=== PATIENT | female | born 1950 | race Caucasian/White ===

== ENCOUNTER 2017-10-11 11:29 | Inpatient (IN) | payer MEDICARE, OTHER ==
[2017-10-11] MEDS: ALBUTEROL 0.083% (NEB) 2.5 MG/3 ML AMP INH (12:16)
[2017-10-11 12:36] LABS: ADD MAN DIFF? NO
[2017-10-11 12:38] LABS: BASOPHIL # 0.1 10^3/ul (0.0-0.1); BASOPHILS % 1.4 % (0.0-2.0); HEMATOCRIT 37.1 % (37.0-47.0); HEMOGLOBIN 11.1 g/dl (12.0-16.0); LYMPHOCYTES # 1.8 10^3/ul (0.8-2.9); LYMPHOCYTES % 31.3 % (15.0-51.0); MEAN CORPUSCULAR HEMOGLOBIN 27.1 pg (29.0-33.0); MEAN CORPUSCULAR HGB CONC 29.9 g/dl (32.0-37.0); MEAN CORPUSCULAR VOLUME 90.5 fl (82.0-101.0); MEAN PLATELET VOLUME 12.2 fl (7.4-10.4); MONOCYTE # 0.4 10^3/ul (0.3-0.9); MONOCYTES % 6.7 % (0.0-11.0); NEUTROPHIL # 3.5 10^3/ul (1.6-7.5); NEUTROPHILS % 60.1 % (39.0-77.0); PLATELET COUNT 199 10^3/UL (140-415); RED CELL DISTRIBUTION WIDTH 16.5 % (11.5-14.5)
[2017-10-11 12:38] LABS: WHITE BLOOD COUNT 5.9 10^3/ul (4.8-10.8)
[2017-10-11 12:44] LABS: ALANINE AMINOTRANSFERASE 19 IU/L (13-69); ALBUMIN 4.2 g/dl (3.3-4.9); ALBUMIN/GLOBULIN RATIO 1.44; ALKALINE PHOSPHATASE 43 IU/L (42-121); ANION GAP 10 (8-16); ASPARTATE AMINO TRANSFERASE 35 IU/L (15-46); BILIRUBIN,INDIRECT 0.5 mg/dl (0-1.1); BILIRUBIN,TOTAL 0.5 mg/dl (0.2-1.3); BLOOD UREA NITROGEN 13 mg/dl (7-20); CALCIUM 8.2 mg/dl (8.4-10.2); CARBON DIOXIDE 33 mmol/L (21-31); CHLORIDE 102 mmol/L (97-110); CREATININE 1.04 mg/dl (0.44-1.00); GLUCOSE 167 mg/dl (70-220); POTASSIUM 3.5 mmol/L (3.5-5.1); SODIUM 141 mmol/L (135-144); TOTAL PROTEIN 7.1 g/dl (6.1-8.1)
[2017-10-11 12:56] LABS: B-TYPE NATRIURETIC PEPTIDE 2760 PG/ML (0-125)
[2017-10-11 13:03] LABS: TROPONIN-I 0.129 ng/ml (0.000-0.120)
[2017-10-11 13:29] LABS: FREE T3 0.69 pg/ml (2.77-5.27)
[2017-10-11] MEDS: CEFEPIME 2GM/50 ML (PMX) 50 ML IVPB (13:41)
[2017-10-11] MEDS: ENOXAPARIN 80 MG/0.8 ML SYG SC ×2 (13:41→22:02)
[2017-10-11 13:48] LABS: FREE T4 (FREE THYROXINE) < 0.07 ng/dl (0.78-2.44)
[2017-10-11] MEDS ORDERED: ACETAMINOPHEN 325 MG TAB PO ×2 (14:30→16:00)
[2017-10-11] MEDS ORDERED: ONDANSETRON 4 MG INJ IV (14:30)
[2017-10-11 14:34] LABS: AADO2 Arterial 101.4 mmHg (7.0-24.0); Allen Test ACCEPTAB; Arterial Base Excess 5.3 mmol/L (-3.0-3); Arterial Blood Gas Oxygen Sat 88.1 mmHG (95.0-98.0); Arterial COHb 1.7 % (0.0-3.0); Arterial Fraction of Oxyhgb 86.5 % (93.0-99.0); Arterial HCO3 33.1 mmol/L (22.0-26.0); Arterial MetHb 0.1 % (0.0-1.5); Arterial Total Hemglobin 12.7 g/dl (12.0-18.0); Arterial pCO2 64.6 mmhg (35-45); MODE NASAL CANNULA; Site Right Radial
[2017-10-11] MEDS: SOD CHLORIDE 0.9% 100 ML (15:17)
[2017-10-11] MEDS: VANCOMYCIN 1 GM (PMX) 250 ML IVPB (15:17)
[2017-10-11] MEDS: IOHEXOL 100 ML (15:18)
[2017-10-11] MEDS ORDERED: HYDROCODONE/APAP (5/325) TAB PO (16:00)
[2017-10-11 16:29] LABS: LACTIC ACID 1.3 mmol/L (0.5-2.0)
[2017-10-11 16:34] LABS: HDL CHOLESTEROL 49 mg/dl (35-98); TRIGLYCERIDES 294 mg/dl (0-149)
[2017-10-11 16:42] LABS: HEMOGLOBIN A1C 6.6 % (0-5.9)
[2017-10-11 16:47] LABS: CHOLESTEROL 352 mg/dl (100-200)
[2017-10-11 16:47] LABS: CHOL/HDL RATIO 7.1 RATIO; LDL CHOLESTEROL,CALCULATED 244 mg/dl
[2017-10-11] MEDS: LEVOTHYROXINE 500 MCG VIAL IV (17:21)
[2017-10-11] MEDS: FUROSEMIDE 40 MG INJ IV (17:25)
[2017-10-11] MEDS: LEVOTHYROXINE 200 MCG VIAL IV (17:26)
[2017-10-11] MEDS: SOD CHLORIDE 0.9% 1,000 ML IV ×2 (18:07→21:59)
[2017-10-11] MEDS ORDERED: GLUCAGON 1 MG INJ IM (18:30)
[2017-10-11] MEDS ORDERED: GLUCOSE GEL 15 GRAM TUBE PO ×2 (18:30)
[2017-10-11] MEDS ORDERED: DEXTROSE 50% 50 ML SYRINGE IV ×2 (18:30)
[2017-10-11] MEDS ORDERED: GLUCOSE GEL 15 GRAM TUBE BUCCAL (18:30)
[2017-10-11] MEDS ORDERED: INSULIN ASPART [NOVOLOG] 3 ML PEN SC (21:00)
[2017-10-11 21:34] LABS: LACTIC ACID 1.6 mmol/L (0.5-2.0)
[2017-10-11 21:59] LABS: TROPONIN-I 0.186 ng/ml (0.000-0.120)
[2017-10-11] MEDS: BENAZEPRIL 20 MG TAB PO (21:59)
[2017-10-11] MEDS: ATORVASTATIN 20 MG TAB PO (22:00)
[2017-10-11] MEDS: INSULIN ASPART [NOVOLOG] 3 ML PEN SC (22:00)
[2017-10-11] MEDS: HYDROCORTISONE 100 MG INJ IV (22:04)
[2017-10-12 01:26] LABS: TROPONIN-I 0.185 ng/ml (0.000-0.120)
[2017-10-12] MEDS: ACCU-CHEK XX (01:57)
[2017-10-12 05:13] LABS: ADD MAN DIFF? NO
[2017-10-12 05:14] LABS: WHITE BLOOD COUNT 7.8 10^3/ul (4.8-10.8)
[2017-10-12 05:14] LABS: ABNORMAL IP MESSAGE 1; BASOPHILS % 0.4 % (0.0-2.0); HEMATOCRIT 39.9 % (37.0-47.0); HEMOGLOBIN 11.9 g/dl (12.0-16.0); LYMPHOCYTES # 0.5 10^3/ul (0.8-2.9); LYMPHOCYTES % 6.3 % (15.0-51.0); MEAN CORPUSCULAR HEMOGLOBIN 26.9 pg (29.0-33.0); MEAN CORPUSCULAR HGB CONC 29.8 g/dl (32.0-37.0); MEAN CORPUSCULAR VOLUME 90.3 fl (82.0-101.0); MONOCYTE # 0.2 10^3/ul (0.3-0.9); MONOCYTES % 1.9 % (0.0-11.0); NEUTROPHIL # 7.1 10^3/ul (1.6-7.5); NEUTROPHILS % 90.6 % (39.0-77.0); PLATELET COUNT 232 10^3/UL (140-415); RED BLOOD COUNT 4.42 10^6/ul (4.20-5.40); RED CELL DISTRIBUTION WIDTH 16.7 % (11.5-14.5)
[2017-10-12 05:20] LABS: POSITIVE DIFF @See below
[2017-10-12 05:33] LABS: ANION GAP 8 (8-16); BLOOD UREA NITROGEN 11 mg/dl (7-20); CALCIUM 7.7 mg/dl (8.4-10.2); CARBON DIOXIDE 36 mmol/L (21-31); CHLORIDE 100 mmol/L (97-110); CREATININE 1.03 mg/dl (0.44-1.00); GLUCOSE 137 mg/dl (70-220); MAGNESIUM 1.8 mg/dl (1.7-2.5); PHOSPHORUS 3.7 mg/dl (2.5-4.9); POTASSIUM 3.4 mmol/L (3.5-5.1); SODIUM 141 mmol/L (135-144)
[2017-10-12] MEDS: LEVOTHYROXINE 125 MCG TAB PO (05:34)
[2017-10-12] MEDS: HYDROCORTISONE 100 MG INJ IV (05:34)
[2017-10-12] MEDS ORDERED: LEVOTHYROXINE 100 MCG TAB PO (06:00)
[2017-10-12] MEDS: POTASSIUM CHLORIDE 20 MEQ POWDER FOR ORAL SOLN PO (06:44)
[2017-10-12] MEDS: INSULIN ASPART [NOVOLOG] 3 ML PEN SC ×6 (07:35→21:00)
[2017-10-12] MEDS: EZETIMIBE 10 MG TAB PO (09:30)
[2017-10-12] MEDS: AMLODIPINE 10 MG TAB PO (09:30)
[2017-10-12] MEDS: BENAZEPRIL 20 MG TAB PO (09:31)
[2017-10-12] MEDS: ENOXAPARIN 80 MG/0.8 ML SYG SC ×2 (09:33→21:52)
[2017-10-12 10:04] LABS: HDL CHOLESTEROL 49 mg/dl (35-98); TRIGLYCERIDES 254 mg/dl (0-149)
[2017-10-12 10:11] LABS: CHOL/HDL RATIO 7.6 RATIO; LDL CHOLESTEROL,CALCULATED 273 mg/dl
[2017-10-12 10:11] LABS: CHOLESTEROL 373 mg/dl (100-200)
[2017-10-12] MEDS ORDERED: ALBUTEROL/IPRATROPIUM (NEB) 3 ML AMP HHN (12:30)
[2017-10-12] MEDS: NICOTINE (14 MG/24 HR) PATCH TRANSDERM (12:59)
[2017-10-12] MEDS: FUROSEMIDE 20 MG INJ IV (13:00)
[2017-10-12] MEDS: LINAGLIPTIN 5 MG TABLET PO (15:06)
[2017-10-12] MEDS: ATORVASTATIN 40 MG TAB PO (21:36)
[2017-10-12] MEDS: DOCUSATE SODIUM 100 MG CAP PO (21:36)
[2017-10-12] MEDS: BENAZEPRIL 10 MG TAB PO (21:36)
[2017-10-12] MEDS: SENNA TAB PO (21:36)
[2017-10-12 22:35] LABS: TROPONIN-I 0.173 ng/ml (0.000-0.120)
[2017-10-13] MEDS: ACCU-CHEK XX (02:00)
[2017-10-13 05:25] LABS: ADD MAN DIFF? NO
[2017-10-13 05:32] LABS: WHITE BLOOD COUNT 8.8 10^3/ul (4.8-10.8)
[2017-10-13 05:32] LABS: BASOPHILS % 0.2 % (0.0-2.0); HEMATOCRIT 36.4 % (37.0-47.0); HEMOGLOBIN 10.8 g/dl (12.0-16.0); LYMPHOCYTES # 1.2 10^3/ul (0.8-2.9); LYMPHOCYTES % 14.1 % (15.0-51.0); MEAN CORPUSCULAR HEMOGLOBIN 26.4 pg (29.0-33.0); MEAN CORPUSCULAR HGB CONC 29.7 g/dl (32.0-37.0); MONOCYTE # 0.6 10^3/ul (0.3-0.9); MONOCYTES % 7.1 % (0.0-11.0); NEUTROPHIL # 6.9 10^3/ul (1.6-7.5); NEUTROPHILS % 78.3 % (39.0-77.0); PLATELET COUNT 209 10^3/UL (140-415); RED BLOOD COUNT 4.09 10^6/ul (4.20-5.40); RED CELL DISTRIBUTION WIDTH 16.9 % (11.5-14.5)
[2017-10-13 06:03] LABS: ANION GAP 9 (8-16); BLOOD UREA NITROGEN 16 mg/dl (7-20); CALCIUM 8.2 mg/dl (8.4-10.2); CARBON DIOXIDE 36 mmol/L (21-31); CHLORIDE 100 mmol/L (97-110); CREATININE 1.44 mg/dl (0.44-1.00); GLUCOSE 94 mg/dl (70-220); MAGNESIUM 1.9 mg/dl (1.7-2.5); PHOSPHORUS 2.7 mg/dl (2.5-4.9); POTASSIUM 3.9 mmol/L (3.5-5.1); SODIUM 141 mmol/L (135-144)
[2017-10-13] MEDS: LEVOTHYROXINE 125 MCG TAB PO (06:41)
[2017-10-13] MEDS: INSULIN ASPART [NOVOLOG] 3 ML PEN SC ×4 (07:35→20:25)
[2017-10-13] MEDS: EZETIMIBE 10 MG TAB PO (09:49)
[2017-10-13] MEDS: predniSONE 20 MG TAB PO (09:49)
[2017-10-13] MEDS: DOCUSATE SODIUM 100 MG CAP PO ×2 (09:49→20:21)
[2017-10-13] MEDS: LINAGLIPTIN 5 MG TABLET PO (09:49)
[2017-10-13] MEDS: SENNA TAB PO ×2 (09:49→20:21)
[2017-10-13] MEDS: NICOTINE (14 MG/24 HR) PATCH TRANSDERM (09:50)
[2017-10-13] MEDS: ENOXAPARIN 80 MG/0.8 ML SYG SC (09:50)
[2017-10-13] MEDS: SOD CHLORIDE 0.45% 1,000 ML IV ×2 (09:51→22:50)
[2017-10-13] MEDS: ATORVASTATIN 40 MG TAB PO (20:21)
[2017-10-14] MEDS: ACCU-CHEK XX (02:00)
[2017-10-14] MEDS: LEVOTHYROXINE 125 MCG TAB PO (06:02)
[2017-10-14 07:26] LABS: ADD MAN DIFF? NO
[2017-10-14 07:36] LABS: WHITE BLOOD COUNT 8.9 10^3/ul (4.8-10.8)
[2017-10-14 07:36] LABS: HEMATOCRIT 36.1 % (37.0-47.0); HEMOGLOBIN 10.9 g/dl (12.0-16.0); LYMPHOCYTES # 0.8 10^3/ul (0.8-2.9); LYMPHOCYTES % 8.5 % (15.0-51.0); MEAN CORPUSCULAR HEMOGLOBIN 26.4 pg (29.0-33.0); MEAN CORPUSCULAR HGB CONC 30.2 g/dl (32.0-37.0); MEAN CORPUSCULAR VOLUME 87.4 fl (82.0-101.0); MEAN PLATELET VOLUME 12.3 fl (7.4-10.4); MONOCYTE # 0.4 10^3/ul (0.3-0.9); MONOCYTES % 4.7 % (0.0-11.0); NEUTROPHIL # 7.7 10^3/ul (1.6-7.5); PLATELET COUNT 215 10^3/UL (140-415); RED BLOOD COUNT 4.13 10^6/ul (4.20-5.40); RED CELL DISTRIBUTION WIDTH 16.8 % (11.5-14.5)
[2017-10-14 07:53] LABS: ANION GAP 8 (8-16); BLOOD UREA NITROGEN 23 mg/dl (7-20); CALCIUM 8.5 mg/dl (8.4-10.2); CARBON DIOXIDE 34 mmol/L (21-31); CHLORIDE 100 mmol/L (97-110); CREATININE 1.11 mg/dl (0.44-1.00); GLUCOSE 103 mg/dl (70-220); POTASSIUM 4.1 mmol/L (3.5-5.1); SODIUM 138 mmol/L (135-144)
[2017-10-14] MEDS: INSULIN ASPART [NOVOLOG] 3 ML PEN SC ×4 (07:54→21:00)
[2017-10-14 08:02] LABS: TROPONIN-I 0.104 ng/ml (0.000-0.120)
[2017-10-14] MEDS: ASPIRIN 81 MG TAB PO (09:33)
[2017-10-14] MEDS: DOCUSATE SODIUM 100 MG CAP PO ×2 (09:33→21:13)
[2017-10-14] MEDS: EZETIMIBE 10 MG TAB PO (09:33)
[2017-10-14] MEDS: LINAGLIPTIN 5 MG TABLET PO (09:33)
[2017-10-14] MEDS: SENNA TAB PO ×2 (09:34→21:13)
[2017-10-14] MEDS: predniSONE 20 MG TAB PO (09:34)
[2017-10-14] MEDS: ENOXAPARIN 40 MG/0.4 ML SYG SC (09:36)
[2017-10-14] MEDS: NICOTINE (14 MG/24 HR) PATCH TRANSDERM (09:36)
[2017-10-14] MEDS: ATORVASTATIN 40 MG TAB PO (21:13)
[2017-10-15] MEDS: ACCU-CHEK XX (02:00)
[2017-10-15] MEDS: LEVOTHYROXINE 125 MCG TAB PO (05:36)
[2017-10-15] MEDS: INSULIN ASPART [NOVOLOG] 3 ML PEN SC ×4 (07:45→20:40)
[2017-10-15 07:58] LABS: ADD MAN DIFF? NO
[2017-10-15 08:05] LABS: WHITE BLOOD COUNT 9.8 10^3/ul (4.8-10.8)
[2017-10-15 08:05] LABS: BASOPHILS % 0.1 % (0.0-2.0); EOSINOPHILS % 0.1 % (0.0-7.0); HEMATOCRIT 36.8 % (37.0-47.0); HEMOGLOBIN 11.1 g/dl (12.0-16.0); LYMPHOCYTES # 1.1 10^3/ul (0.8-2.9); LYMPHOCYTES % 11.2 % (15.0-51.0); MEAN CORPUSCULAR HEMOGLOBIN 26.9 pg (29.0-33.0); MEAN CORPUSCULAR HGB CONC 30.2 g/dl (32.0-37.0); MEAN CORPUSCULAR VOLUME 89.3 fl (82.0-101.0); MEAN PLATELET VOLUME 11.8 fl (7.4-10.4); MONOCYTE # 0.7 10^3/ul (0.3-0.9); MONOCYTES % 7.5 % (0.0-11.0); NEUTROPHIL # 7.9 10^3/ul (1.6-7.5); NEUTROPHILS % 80.3 % (39.0-77.0); PLATELET COUNT 202 10^3/UL (140-415); RED BLOOD COUNT 4.12 10^6/ul (4.20-5.40); RED CELL DISTRIBUTION WIDTH 16.8 % (11.5-14.5)
[2017-10-15 08:45] LABS: ANION GAP 8 (8-16); BLOOD UREA NITROGEN 24 mg/dl (7-20); CALCIUM 8.9 mg/dl (8.4-10.2); CARBON DIOXIDE 33 mmol/L (21-31); CHLORIDE 103 mmol/L (97-110); CREATININE 1.11 mg/dl (0.44-1.00); GLUCOSE 93 mg/dl (70-220); POTASSIUM 4.2 mmol/L (3.5-5.1); SODIUM 140 mmol/L (135-144)
[2017-10-15] MEDS: ENOXAPARIN 40 MG/0.4 ML SYG SC (09:28)
[2017-10-15] MEDS: NICOTINE (14 MG/24 HR) PATCH TRANSDERM (09:32)
[2017-10-15] MEDS: predniSONE 20 MG TAB PO (09:34)
[2017-10-15] MEDS: LINAGLIPTIN 5 MG TABLET PO (09:34)
[2017-10-15] MEDS: SENNA TAB PO ×2 (09:34→20:40)
[2017-10-15] MEDS: ASPIRIN 81 MG TAB PO (09:34)
[2017-10-15] MEDS: EZETIMIBE 10 MG TAB PO (09:34)
[2017-10-15] MEDS: DOCUSATE SODIUM 100 MG CAP PO ×2 (09:34→20:40)
[2017-10-15] MEDS: ATORVASTATIN 40 MG TAB PO (20:37)
[2017-10-16] MEDS: ACCU-CHEK XX (02:00)
[2017-10-16] MEDS: LEVOTHYROXINE 125 MCG TAB PO (05:43)
[2017-10-16] MEDS: INSULIN ASPART [NOVOLOG] 3 ML PEN SC ×4 (08:00→21:00)
[2017-10-16 08:30] LABS: ADD MAN DIFF? NO
[2017-10-16 08:34] LABS: BASOPHILS % 0.1 % (0.0-2.0); HEMATOCRIT 37.4 % (37.0-47.0); HEMOGLOBIN 11.1 g/dl (12.0-16.0); LYMPHOCYTES # 1.5 10^3/ul (0.8-2.9); LYMPHOCYTES % 15.4 % (15.0-51.0); MEAN CORPUSCULAR HEMOGLOBIN 26.2 pg (29.0-33.0); MEAN CORPUSCULAR HGB CONC 29.7 g/dl (32.0-37.0); MEAN CORPUSCULAR VOLUME 88.2 fl (82.0-101.0); MEAN PLATELET VOLUME 11.8 fl (7.4-10.4); MONOCYTE # 0.6 10^3/ul (0.3-0.9); MONOCYTES % 5.9 % (0.0-11.0); NEUTROPHIL # 7.4 10^3/ul (1.6-7.5); NEUTROPHILS % 78.3 % (39.0-77.0); PLATELET COUNT 215 10^3/UL (140-415); RED BLOOD COUNT 4.24 10^6/ul (4.20-5.40); RED CELL DISTRIBUTION WIDTH 16.9 % (11.5-14.5)
[2017-10-16 08:34] LABS: WHITE BLOOD COUNT 9.4 10^3/ul (4.8-10.8)
[2017-10-16] MEDS: DOCUSATE SODIUM 100 MG CAP PO ×2 (08:55→21:14)
[2017-10-16] MEDS: EZETIMIBE 10 MG TAB PO (08:55)
[2017-10-16 08:56] LABS: ANION GAP 9 (8-16); BLOOD UREA NITROGEN 26 mg/dl (7-20); CALCIUM 9.4 mg/dl (8.4-10.2); CARBON DIOXIDE 34 mmol/L (21-31); CHLORIDE 101 mmol/L (97-110); GLUCOSE 97 mg/dl (70-220); POTASSIUM 4.1 mmol/L (3.5-5.1); SODIUM 140 mmol/L (135-144)
[2017-10-16] MEDS: ASPIRIN 81 MG TAB PO (08:56)
[2017-10-16] MEDS: SENNA TAB PO ×2 (08:56→21:14)
[2017-10-16] MEDS: predniSONE 20 MG TAB PO (08:56)
[2017-10-16] MEDS: LINAGLIPTIN 5 MG TABLET PO (08:56)
[2017-10-16] MEDS: NICOTINE (14 MG/24 HR) PATCH TRANSDERM (08:56)
[2017-10-16] MEDS: ENOXAPARIN 40 MG/0.4 ML SYG SC (09:09)
[2017-10-16] MEDS: ATORVASTATIN 40 MG TAB PO (21:14)
[2017-10-17] MEDS: ACCU-CHEK XX (02:00)
[2017-10-17 05:42] LABS: ADD MAN DIFF? NO
[2017-10-17 06:02] LABS: BASOPHILS % 0.1 % (0.0-2.0); HEMATOCRIT 34.2 % (37.0-47.0); HEMOGLOBIN 10.2 g/dl (12.0-16.0); LYMPHOCYTES # 0.9 10^3/ul (0.8-2.9); MEAN CORPUSCULAR HEMOGLOBIN 26.3 pg (29.0-33.0); MEAN CORPUSCULAR HGB CONC 29.8 g/dl (32.0-37.0); MEAN CORPUSCULAR VOLUME 88.1 fl (82.0-101.0); MEAN PLATELET VOLUME 12.4 fl (7.4-10.4); MONOCYTE # 0.6 10^3/ul (0.3-0.9); MONOCYTES % 6.6 % (0.0-11.0); NEUTROPHIL # 7.1 10^3/ul (1.6-7.5); NEUTROPHILS % 82.6 % (39.0-77.0); PLATELET COUNT 190 10^3/UL (140-415); RED BLOOD COUNT 3.88 10^6/ul (4.20-5.40)
[2017-10-17 06:02] LABS: WHITE BLOOD COUNT 8.6 10^3/ul (4.8-10.8)
[2017-10-17] MEDS: LEVOTHYROXINE 125 MCG TAB PO (06:16)
[2017-10-17 06:24] LABS: ANION GAP 9 (8-16); BLOOD UREA NITROGEN 28 mg/dl (7-20); CALCIUM 8.9 mg/dl (8.4-10.2); CARBON DIOXIDE 33 mmol/L (21-31); CHLORIDE 104 mmol/L (97-110); CREATININE 1.03 mg/dl (0.44-1.00); GLUCOSE 98 mg/dl (70-220); POTASSIUM 4.1 mmol/L (3.5-5.1); SODIUM 142 mmol/L (135-144)
[2017-10-17 06:39] LABS: FREE T4 (FREE THYROXINE) 0.59 ng/dl (0.78-2.44)
[2017-10-17] MEDS: INSULIN ASPART [NOVOLOG] 3 ML PEN SC ×4 (08:00→21:00)
[2017-10-17] MEDS: LINAGLIPTIN 5 MG TABLET PO (09:00)
[2017-10-17] MEDS: AMLODIPINE 5 MG TAB PO ×2 (09:47→22:01)
[2017-10-17] MEDS: ASPIRIN 81 MG TAB PO (09:47)
[2017-10-17] MEDS: EZETIMIBE 10 MG TAB PO (09:47)
[2017-10-17] MEDS: predniSONE 20 MG TAB PO (09:47)
[2017-10-17] MEDS: NICOTINE (14 MG/24 HR) PATCH TRANSDERM (09:47)
[2017-10-17] MEDS: DOCUSATE SODIUM 100 MG CAP PO ×2 (09:47→22:01)
[2017-10-17] MEDS: SENNA TAB PO ×2 (09:47→22:02)
[2017-10-17] MEDS: ENOXAPARIN 40 MG/0.4 ML SYG SC (10:04)
[2017-10-17] MEDS: FUROSEMIDE 20 MG INJ IV (10:41)
[2017-10-17 10:59] LABS: INR 0.96; PROTIME 12.9 Sec (11.9-14.9)
[2017-10-17 11:00] LABS: PARTIAL THROMBOPLASTIN TIME 26.4 Sec (25.0-35.0)
[2017-10-17] MEDS: ATORVASTATIN 40 MG TAB PO (22:02)
[2017-10-18] MEDS: ACCU-CHEK XX (02:00)
[2017-10-18 06:09] LABS: ADD MAN DIFF? NO
[2017-10-18 06:19] LABS: WHITE BLOOD COUNT 9.3 10^3/ul (4.8-10.8)
[2017-10-18 06:19] LABS: BASOPHILS % 0.1 % (0.0-2.0); EOSINOPHILS % 0.2 % (0.0-7.0); HEMATOCRIT 35.9 % (37.0-47.0); HEMOGLOBIN 10.9 g/dl (12.0-16.0); LYMPHOCYTES # 1.5 10^3/ul (0.8-2.9); LYMPHOCYTES % 16.3 % (15.0-51.0); MEAN CORPUSCULAR HEMOGLOBIN 26.5 pg (29.0-33.0); MEAN CORPUSCULAR HGB CONC 30.4 g/dl (32.0-37.0); MEAN CORPUSCULAR VOLUME 87.3 fl (82.0-101.0); MONOCYTE # 0.6 10^3/ul (0.3-0.9); MONOCYTES % 6.2 % (0.0-11.0); NEUTROPHIL # 7.2 10^3/ul (1.6-7.5); NEUTROPHILS % 76.8 % (39.0-77.0); PLATELET COUNT 181 10^3/UL (140-415); RED BLOOD COUNT 4.11 10^6/ul (4.20-5.40); RED CELL DISTRIBUTION WIDTH 16.7 % (11.5-14.5)
[2017-10-18 06:29] LABS: POTASSIUM 3.8 mmol/L (3.5-5.1); SODIUM 140 mmol/L (135-144)
[2017-10-18] MEDS: LEVOTHYROXINE 125 MCG TAB PO (06:34)
[2017-10-18 06:37] LABS: ANION GAP 9 (8-16); BLOOD UREA NITROGEN 32 mg/dl (7-20); CARBON DIOXIDE 35 mmol/L (21-31); CHLORIDE 100 mmol/L (97-110); CREATININE 0.91 mg/dl (0.44-1.00); GLUCOSE 86 mg/dl (70-220)
[2017-10-18] MEDS: INSULIN ASPART [NOVOLOG] 3 ML PEN SC ×4 (07:52→21:00)
[2017-10-18] MEDS: ASPIRIN 81 MG TAB PO (09:00)
[2017-10-18] MEDS: DOCUSATE SODIUM 100 MG CAP PO ×2 (09:00→20:58)
[2017-10-18] MEDS: SENNA TAB PO ×2 (09:01→20:58)
[2017-10-18] MEDS: EZETIMIBE 10 MG TAB PO (09:01)
[2017-10-18] MEDS: predniSONE 20 MG TAB PO (09:01)
[2017-10-18] MEDS: AMLODIPINE 5 MG TAB PO ×2 (09:01→20:59)
[2017-10-18] MEDS: LINAGLIPTIN 5 MG TABLET PO (09:01)
[2017-10-18] MEDS: NICOTINE (14 MG/24 HR) PATCH TRANSDERM (09:02)
[2017-10-18] MEDS: ATORVASTATIN 40 MG TAB PO (20:58)
[2017-10-18] MEDS: BENAZEPRIL 10 MG TAB PO (21:00)
[2017-10-19] MEDS: ACCU-CHEK XX (02:00)
[2017-10-19 06:24] LABS: ADD MAN DIFF? NO
[2017-10-19 06:33] LABS: BASOPHILS % 0.1 % (0.0-2.0); EOSINOPHILS % 0.1 % (0.0-7.0); HEMOGLOBIN 10.4 g/dl (12.0-16.0); LYMPHOCYTES # 1.6 10^3/ul (0.8-2.9); LYMPHOCYTES % 17.5 % (15.0-51.0); MEAN CORPUSCULAR HEMOGLOBIN 26.9 pg (29.0-33.0); MEAN CORPUSCULAR HGB CONC 30.6 g/dl (32.0-37.0); MEAN CORPUSCULAR VOLUME 88.1 fl (82.0-101.0); MEAN PLATELET VOLUME 12.7 fl (7.4-10.4); MONOCYTE # 0.8 10^3/ul (0.3-0.9); MONOCYTES % 8.4 % (0.0-11.0); NEUTROPHIL # 6.9 10^3/ul (1.6-7.5); NEUTROPHILS % 73.3 % (39.0-77.0); PLATELET COUNT 185 10^3/UL (140-415); RED BLOOD COUNT 3.86 10^6/ul (4.20-5.40); RED CELL DISTRIBUTION WIDTH 16.3 % (11.5-14.5)
[2017-10-19 06:33] LABS: WHITE BLOOD COUNT 9.4 10^3/ul (4.8-10.8)
[2017-10-19] MEDS: LEVOTHYROXINE 125 MCG TAB PO (07:06)
[2017-10-19 07:41] LABS: ANION GAP 8 (8-16); BLOOD UREA NITROGEN 33 mg/dl (7-20); CALCIUM 8.9 mg/dl (8.4-10.2); CARBON DIOXIDE 37 mmol/L (21-31); CHLORIDE 100 mmol/L (97-110); CREATININE 1.12 mg/dl (0.44-1.00); GLUCOSE 84 mg/dl (70-220); SODIUM 141 mmol/L (135-144)
[2017-10-19] MEDS: INSULIN ASPART [NOVOLOG] 3 ML PEN SC ×4 (07:54→20:11)
[2017-10-19] MEDS: ASPIRIN 81 MG TAB PO (08:32)
[2017-10-19] MEDS: DOCUSATE SODIUM 100 MG CAP PO ×2 (08:32→20:10)
[2017-10-19] MEDS: predniSONE 20 MG TAB PO (08:33)
[2017-10-19] MEDS: BENAZEPRIL 10 MG TAB PO ×2 (08:33→20:10)
[2017-10-19] MEDS: LINAGLIPTIN 5 MG TABLET PO (08:33)
[2017-10-19] MEDS: AMLODIPINE 5 MG TAB PO ×2 (08:33→20:11)
[2017-10-19] MEDS: SENNA TAB PO ×2 (08:33→20:11)
[2017-10-19] MEDS: EZETIMIBE 10 MG TAB PO (08:34)
[2017-10-19] MEDS: NICOTINE (14 MG/24 HR) PATCH TRANSDERM (08:34)
[2017-10-19] MEDS: ENOXAPARIN 40 MG/0.4 ML SYG SC (08:38)
[2017-10-19] MEDS: FUROSEMIDE 20 MG INJ IV (15:47)
[2017-10-19] MEDS: ATORVASTATIN 40 MG TAB PO (20:10)
[2017-10-20] MEDS: ACCU-CHEK XX (02:00)
[2017-10-20 06:22] LABS: ADD MAN DIFF? NO
[2017-10-20] MEDS: LEVOTHYROXINE 125 MCG TAB PO (06:35)
[2017-10-20 06:36] LABS: WHITE BLOOD COUNT 9.7 10^3/ul (4.8-10.8)
[2017-10-20 06:36] LABS: BASOPHILS % 0.2 % (0.0-2.0); EOSINOPHILS % 0.1 % (0.0-7.0); HEMATOCRIT 35.2 % (37.0-47.0); HEMOGLOBIN 10.6 g/dl (12.0-16.0); LYMPHOCYTES # 1.5 10^3/ul (0.8-2.9); LYMPHOCYTES % 15.2 % (15.0-51.0); MEAN CORPUSCULAR HEMOGLOBIN 26.6 pg (29.0-33.0); MEAN CORPUSCULAR HGB CONC 30.1 g/dl (32.0-37.0); MEAN CORPUSCULAR VOLUME 88.4 fl (82.0-101.0); MEAN PLATELET VOLUME 12.7 fl (7.4-10.4); MONOCYTE # 0.9 10^3/ul (0.3-0.9); MONOCYTES % 8.9 % (0.0-11.0); NEUTROPHIL # 7.3 10^3/ul (1.6-7.5); PLATELET COUNT 188 10^3/UL (140-415); RED BLOOD COUNT 3.98 10^6/ul (4.20-5.40); RED CELL DISTRIBUTION WIDTH 16.3 % (11.5-14.5)
[2017-10-20 06:49] LABS: ANION GAP 10 (8-16); BLOOD UREA NITROGEN 37 mg/dl (7-20); CARBON DIOXIDE 35 mmol/L (21-31); CHLORIDE 101 mmol/L (97-110); CREATININE 1.16 mg/dl (0.44-1.00); GLUCOSE 81 mg/dl (70-220); POTASSIUM 3.7 mmol/L (3.5-5.1); SODIUM 142 mmol/L (135-144)
[2017-10-20 06:50] LABS: CALCIUM 8.8 mg/dl (8.4-10.2)
[2017-10-20] MEDS: INSULIN ASPART [NOVOLOG] 3 ML PEN SC ×4 (07:56→20:24)
[2017-10-20] MEDS: ASPIRIN 81 MG TAB PO (08:53)
[2017-10-20] MEDS: AMLODIPINE 5 MG TAB PO ×2 (08:53→20:25)
[2017-10-20] MEDS: BENAZEPRIL 10 MG TAB PO (08:53)
[2017-10-20] MEDS: DOCUSATE SODIUM 100 MG CAP PO ×2 (08:53→20:30)
[2017-10-20] MEDS: LINAGLIPTIN 5 MG TABLET PO (08:54)
[2017-10-20] MEDS: SENNA TAB PO ×2 (08:54→20:24)
[2017-10-20] MEDS: EZETIMIBE 10 MG TAB PO (08:54)
[2017-10-20] MEDS: predniSONE 10 MG TAB PO (08:54)
[2017-10-20] MEDS: ENOXAPARIN 40 MG/0.4 ML SYG SC (08:56)
[2017-10-20] MEDS: NICOTINE (14 MG/24 HR) PATCH TRANSDERM (08:58)
[2017-10-20] MEDS: SOD CHLORIDE 0.45% 1,000 ML IV (13:30)
[2017-10-20] MEDS: ATORVASTATIN 40 MG TAB PO (20:24)
[2017-10-21] MEDS: ACCU-CHEK XX (02:00)
[2017-10-21 06:00] LABS: ADD MAN DIFF? NO
[2017-10-21] MEDS ORDERED: LEVOTHYROXINE 125 MCG TAB PO (06:00)
[2017-10-21 06:05] LABS: BASOPHILS % 0.2 % (0.0-2.0); EOSINOPHILS % 0.2 % (0.0-7.0); HEMATOCRIT 34.2 % (37.0-47.0); HEMOGLOBIN 10.3 g/dl (12.0-16.0); LYMPHOCYTES # 1.7 10^3/ul (0.8-2.9); LYMPHOCYTES % 15.7 % (15.0-51.0); MEAN CORPUSCULAR HEMOGLOBIN 26.3 pg (29.0-33.0); MEAN CORPUSCULAR HGB CONC 30.1 g/dl (32.0-37.0); MEAN CORPUSCULAR VOLUME 87.5 fl (82.0-101.0); MEAN PLATELET VOLUME 12.9 fl (7.4-10.4); MONOCYTE # 1.1 10^3/ul (0.3-0.9); MONOCYTES % 9.9 % (0.0-11.0); NEUTROPHIL # 7.8 10^3/ul (1.6-7.5); NEUTROPHILS % 73.2 % (39.0-77.0); PLATELET COUNT 180 10^3/UL (140-415); RED BLOOD COUNT 3.91 10^6/ul (4.20-5.40); RED CELL DISTRIBUTION WIDTH 16.5 % (11.5-14.5)
[2017-10-21 06:05] LABS: WHITE BLOOD COUNT 10.7 10^3/ul (4.8-10.8)
[2017-10-21 06:54] LABS: ANION GAP 11 (8-16); BLOOD UREA NITROGEN 40 mg/dl (7-20); CALCIUM 9.1 mg/dl (8.4-10.2); CARBON DIOXIDE 33 mmol/L (21-31); CHLORIDE 102 mmol/L (97-110); CREATININE 1.11 mg/dl (0.44-1.00); GLUCOSE 88 mg/dl (70-220); POTASSIUM 4.1 mmol/L (3.5-5.1); SODIUM 142 mmol/L (135-144)
[2017-10-21] MEDS: INSULIN ASPART [NOVOLOG] 3 ML PEN SC ×4 (07:32→20:33)
[2017-10-21] MEDS: ASPIRIN 81 MG TAB PO (08:10)
[2017-10-21] MEDS: AMLODIPINE 5 MG TAB PO ×2 (08:10→20:32)
[2017-10-21] MEDS: DOCUSATE SODIUM 100 MG CAP PO ×2 (08:10→20:32)
[2017-10-21] MEDS: NICOTINE (14 MG/24 HR) PATCH TRANSDERM (08:11)
[2017-10-21] MEDS: SENNA TAB PO ×2 (08:11→20:32)
[2017-10-21] MEDS: predniSONE 5 MG TAB PO (08:11)
[2017-10-21] MEDS: EZETIMIBE 10 MG TAB PO (08:11)
[2017-10-21] MEDS: LEVOTHYROXINE 137 MCG TAB PO (08:11)
[2017-10-21] MEDS: LINAGLIPTIN 5 MG TABLET PO (08:11)
[2017-10-21] MEDS: ENOXAPARIN 40 MG/0.4 ML SYG SC (08:13)
[2017-10-21] MEDS: ATORVASTATIN 40 MG TAB PO (20:33)
[2017-10-22] MEDS: ACCU-CHEK XX (02:00)
[2017-10-22 06:06] LABS: ADD MAN DIFF? NO
[2017-10-22 06:18] LABS: BASOPHILS % 0.3 % (0.0-2.0); EOSINOPHILS % 0.1 % (0.0-7.0); HEMATOCRIT 33.2 % (37.0-47.0); HEMOGLOBIN 9.9 g/dl (12.0-16.0); LYMPHOCYTES # 1.3 10^3/ul (0.8-2.9); LYMPHOCYTES % 14.1 % (15.0-51.0); MEAN CORPUSCULAR HGB CONC 29.8 g/dl (32.0-37.0); MEAN CORPUSCULAR VOLUME 87.1 fl (82.0-101.0); MEAN PLATELET VOLUME 12.8 fl (7.4-10.4); MONOCYTE # 1.1 10^3/ul (0.3-0.9); MONOCYTES % 11.5 % (0.0-11.0); NEUTROPHIL # 6.8 10^3/ul (1.6-7.5); NEUTROPHILS % 73.5 % (39.0-77.0); PLATELET COUNT 168 10^3/UL (140-415); RED BLOOD COUNT 3.81 10^6/ul (4.20-5.40); RED CELL DISTRIBUTION WIDTH 16.7 % (11.5-14.5)
[2017-10-22 06:18] LABS: WHITE BLOOD COUNT 9.3 10^3/ul (4.8-10.8)
[2017-10-22 07:15] LABS: ANION GAP 10 (8-16); BLOOD UREA NITROGEN 41 mg/dl (7-20); CALCIUM 9.1 mg/dl (8.4-10.2); CARBON DIOXIDE 34 mmol/L (21-31); CHLORIDE 103 mmol/L (97-110); CREATININE 1.14 mg/dl (0.44-1.00); GLUCOSE 85 mg/dl (70-220); POTASSIUM 4.4 mmol/L (3.5-5.1); SODIUM 143 mmol/L (135-144)
[2017-10-22] MEDS: INSULIN ASPART [NOVOLOG] 3 ML PEN SC ×4 (08:00→20:43)
[2017-10-22] MEDS: EZETIMIBE 10 MG TAB PO (08:23)
[2017-10-22] MEDS: LINAGLIPTIN 5 MG TABLET PO (08:23)
[2017-10-22] MEDS: predniSONE 5 MG TAB PO (08:23)
[2017-10-22] MEDS: LEVOTHYROXINE 137 MCG TAB PO (08:23)
[2017-10-22] MEDS: AMLODIPINE 5 MG TAB PO (08:24)
[2017-10-22] MEDS: NICOTINE (14 MG/24 HR) PATCH TRANSDERM (08:24)
[2017-10-22] MEDS: DOCUSATE SODIUM 100 MG CAP PO ×2 (08:24→20:43)
[2017-10-22] MEDS: ASPIRIN 81 MG TAB PO (08:24)
[2017-10-22] MEDS: SENNA TAB PO ×2 (08:24→20:43)
[2017-10-22] MEDS: ENOXAPARIN 40 MG/0.4 ML SYG SC (08:34)
[2017-10-22] MEDS: ATORVASTATIN 40 MG TAB PO (20:43)
[2017-10-23] MEDS: ACCU-CHEK XX (02:00)
[2017-10-23] MEDS: INSULIN ASPART [NOVOLOG] 3 ML PEN SC ×2 (08:00→12:00)
[2017-10-23] MEDS: LEVOTHYROXINE 137 MCG TAB PO (09:17)
[2017-10-23] MEDS: DOCUSATE SODIUM 100 MG CAP PO (09:17)
[2017-10-23] MEDS: predniSONE 5 MG TAB PO (09:18)
[2017-10-23] MEDS: NICOTINE (14 MG/24 HR) PATCH TRANSDERM (09:18)
[2017-10-23] MEDS: NIFEdipine (XL) 60 MG TAB PO (09:18)
[2017-10-23] MEDS: LINAGLIPTIN 5 MG TABLET PO (09:18)
[2017-10-23] MEDS: EZETIMIBE 10 MG TAB PO (09:18)
[2017-10-23] MEDS: ASPIRIN 81 MG TAB PO (09:18)
[2017-10-23] MEDS: SENNA TAB PO (09:18)
[2017-10-23] MEDS: ENOXAPARIN 40 MG/0.4 ML SYG SC (09:20)
== END 2017-10-23 18:30 | disposition home health service (06) | DRG 80 ==
LOC: MS4 10-13 16:18 → 6WM 10-16 11:01 → 2NE 10-22 20:00 → E/R 11:29 → ICU 15:47
PROVIDERS: Internal Medicine
DX: E03.5 Myxedema coma (principal); I21.4 Non-ST elevation (NSTEMI) myocardial infarction; J96.22 Acute and chronic respiratory failure with hypercapnia; J96.21 Acute and chronic respiratory failure with hypoxia; I50.31 Acute diastolic (congestive) heart failure; F17.200 Nicotine dependence, unspecified, uncomplicated; E78.5 Hyperlipidemia, unspecified; E03.9 Hypothyroidism, unspecified; Z91.14 Patient's other noncompliance with medication regimen; F32.9 Major depressive disorder, single episode, unspecified; E11.9 Type 2 diabetes mellitus without complications; I11.0 Hypertensive heart disease with heart failure; E66.9 Obesity, unspecified; Z68.29 Body mass index [BMI] 29.0-29.9, adult; Z99.81 Dependence on supplemental oxygen; D64.9 Anemia, unspecified; D69.6 Thrombocytopenia, unspecified; J44.9 Chronic obstructive pulmonary disease, unspecified
CPT/HCPCS: 36415; 36600; 71045; 71275; 80048; 80053; 80061; 82533; 82803; 82962; 83036; 83605; 83735; 83880; 84100; 84439; 84443; 84481; 84484; 85025; 85610; 85730; 87040; 87081; 93005; 93306; 94664; 94667; 96372; 96374; 97110; 97116; 97161; 97530; 99291-25